=== PATIENT | female | born 1995 | race Two or more races ===

== ENCOUNTER 2016-04-23 22:04 | Emergency (ER) | payer OTHER ==
--- NOTE | ~2016-04-23 | EKG ---
PATIENT: YOLANDA DAVID UNIT #: [id number] Ventricular Rate: 106 BPM Atrial Rate: 106 BPM P-R Interval: 132 ms QRS Duration: 76 ms Q-T Interval: 308 ms QTC Calculation(Bezet): 409 ms P [place]: 57 degrees Calculated R [place]: 39 degrees Calculated T [place]: 17 degrees Diagnosis Line: Sinus tachycardia Diagnosis Line: Otherwise normal ECG Diagnosis Line: Diagnosis Line: Confirmed by NICKY BEATTY MD ([id number]) on Diagnosis Line: 04/25/2016 2:52:21 PM INTERPRETING MD: ROGERIO BYERS
[2016-04-23 21:21] LABS: INFLUENZA A NEG (NEG); INFLUENZA B NEG (NEG)
[~2016-04-23 22:04] MED LIST: AZASITE2.5 ML OU; BACTRIM DS TABL1 TA1 PO; FERROUS SULFATE PO; FIORICET 50-321 EACH PO; FLAGYL PO; FLEXERIL10 M1 PO; IBUPROFEN800 MG PO; MACROBID100 MG PO; NAPROXEN PO; NO MEDICATIONS; PREDNISONE PO; PRENATAL1 TA1 PO; ZITHROMAX1 G/PKT PO
== END 2016-04-23 22:57 | disposition home or self-care (01) ==
LOC: SED 22:04
PROVIDERS: Emergency Medicine
DX: R50.9 Fever, unspecified (principal); R52 Pain, unspecified; Z88.0 Allergy status to penicillin; Z88.1 Allergy status to other antibiotic agents; Z91.040 Latex allergy status; Z88.8 Allergy status to other drugs, medicaments and biological substances
CPT/HCPCS: 87804; 93005; 99283